=== PATIENT | male | born 1995 | race Caucasian/White ===

== ENCOUNTER 2021-02-27 13:32 | Emergency (ER) | payer SELFPAY ==
[2021-02-27] MEDS ORDERED: LIDOCAINE 1% W/EPINEPHRINE 20 ML VIAL ONE (13:57)
== END 2021-02-27 15:12 | disposition home or self-care (01) ==
LOC: ER 15:00
DX: M70.31 Other bursitis of elbow, right elbow (principal)
CPT/HCPCS: 99283